=== PATIENT | male | born 1975 ===

== ENCOUNTER 2021-05-13 09:55 | Emergency (ER) | payer SELFPAY ==
[~2021-05-13] VITALS: Ht 160 cm; Wt 59.5 kg
== END 2021-05-13 12:34 | disposition home or self-care (01) ==
LOC: ED 09:55
DX: K04.7 Periapical abscess without sinus (principal); Z91.013 Allergy to seafood; Z88.8 Allergy status to other drugs, medicaments and biological substances
CPT/HCPCS: 96372; 99282; J0561